=== PATIENT | male | born 1940 | race Caucasian/White ===

== ENCOUNTER → 2016-11-23 08:03 | Outpatient (CLI) | payer MEDICARE, OTHER ==
[2016-05-14 13:01] VITALS: BMI 31.6
[~2016-11-23 08:03] MED LIST: ATROVENT 0.02%2.5 ML UPD; BETAPACE 120 M120 MG PO; BROMFED-DM COU473 ML PO; CORDARONE200 MG PO; DULCOLAX5 MG PO; FEXOFENADINE H180 MG PO; FLUTICASONE PRO16 GM NASAL; FUROSEMIDE20 MG PO; IPRAT-ALBUT 0.5-3 ML; LASIX20 MG PO; LEVAQUIN500 MG PO; LEVAQUIN750 MG PO; MIRALAX17 GM PO; MUCINEX600 MG PO; MULTAQ400 MG PO; NEXIUM40 MG PO; OMNICEF300 MG PO; PERFOROMIS20 MCG/21 INH; PERFOROMIS20 MCG/21 UPD; POTASSIUM CHLO20 MEQ PO; PREDNISONE20 MG PO; PROTONIX40 MG PO; PULMICORT0.25 MG/1 INH; PULMICORT0.5 MG/21 INH; PULMICORT0.5 MG/21 UPD; RYNEX DM LIQUI473 ML PO; SALINE NASAL SP45 ML NASAL; SENOKOT-S TABLE1 TAB PO; SINGULAIR10 MG PO; STERAPRED DS 1210 MG PO; SYMBICORT 16010.2 GM IH; SYNTHROID125 MCG PO; SYNTHROID25 MCG PO; TESSALON PERLE100 MG PO; VASOTEC2.5 MG PO; XARELTO15 MG PO; XOPENEX 0.0.63 MG/3 UPD; XOPENEX HFA15 GM INH
== END | disposition home or self-care (01) ==
LOC: D.RT 08:00
DX: J84.10 Pulmonary fibrosis, unspecified (principal)

== ENCOUNTER 2017-03-27 17:50 | Inpatient (IN) | payer MEDICARE, OTHER ==
[2017-03-27 19:14] LABS: BASOPHILS 0.5 % (0-2); EOSINOPHILS 2.7 % (0-7); HEMATOCRIT 39.4 % (42.0-54.0); HEMOGLOBIN 13.2 g/dL (13.5-17.5); IMMATURE GRANULOCYTES 0.2 % (0-5); LYMPHOCYTES 44.6 % (15-50); MCH 30.8 pg (26.0-34.0); MCHC 33.5 g/dL (31.0-37.0); MCV 91.8 fL (80.0-100.0); MEAN PLATELET VOLUME 10.4 fL (7.4-10.4); PLATELET COUNT 224 10x3/uL (130-400); RBC 4.29 10x6/uL (4.20-6.10); RDW 14.8 % (11.5-14.5); WBC 8.1 10x3/uL (4.8-10.8)
[2017-03-27 19:47] LABS: ALBUMIN 3.1 g/dL (3.4-5.0); ALKALINE PHOSPHATASE 63 U/L (46-116); ALT (SGPT) 21 U/L (10-68); CALC OSMOLALITY 288 mosm/kg (275-300); CALCIUM 7.9 mg/dL (8.5-10.1); CARBON DIOXIDE 22.9 mmol/L (21.0-32.0); CHLORIDE - SERUM 108 mmol/L (98-107); CREATININE - SERUM 1.1 mg/dL (0.6-1.3); GLUCOSE 112 mg/dL (74-106); POTASSIUM - SERUM 3.5 mmol/L (3.5-5.1); PROTEIN - SERUM 6.1 g/dL (6.4-8.2); SODIUM 142 mmol/L (136-145); UREA NITROGEN 26 mg/dL (7-18); eGFR NON AFRICAN AMERICAN 69 mL/min (90-120)
[2017-03-27 19:54] LABS: PRO BNP 882 pg/mL (0-450); TROPONIN-I < 0.017 ng/mL (0.000-0.060)
--- NOTE | 2017-03-27 21:20 | NUR ---
PT ARRIVES TO FLOOR VIA STRETCHER FROM ER ACCOMPANIED BY PT'S SPOUSE AND NURSE. PLACED ON TELEMETRY, REMAINS IN UNCONTROLLED A-FIB ON TELE, HR 130'S. CARDIZEM INFUSING AT 10 MG/HR PER RIGHT CHEST INFUSAPORT. ADMISSION ASSESSMENT AND HISTORY COMPLETED AND MEDICATIONS RECONCILED AT THE BEDSIDE WITH PT AND HIS SPOUSE. UNIT ROUTINES AND PROTOCOLS DISCCUSED, UNDERSTANDING VERBALIZED. CALL LIGHT WITHIN REACH. WILL CONT TO MONITOR.
[2017-03-27] MEDS ORDERED: BROVANA15 MCG/2 M INH (21:26)
[2017-03-27 23:34] VITALS: BP 128/81; BMI 30.9
[2017-03-28] VITALS: BP 128/81
[2017-03-28 05:53] LABS: BASOPHILS 0.3 % (0-2); EOSINOPHILS 4.5 % (0-7); HEMATOCRIT 42.7 % (42.0-54.0); HEMOGLOBIN 14.2 g/dL (13.5-17.5); IMMATURE GRANULOCYTES 0.3 % (0-5); LYMPHOCYTES 28.6 % (15-50); MCH 30.7 pg (26.0-34.0); MCHC 33.3 g/dL (31.0-37.0); MCV 92.2 fL (80.0-100.0); MEAN PLATELET VOLUME 10.4 fL (7.4-10.4); MONOCYTES 10.1 % (2-11); NEUTROPHILS 56.2 % (40-80); PLATELET COUNT 220 10x3/uL (130-400); RBC 4.63 10x6/uL (4.20-6.10)
[2017-03-28 05:57] LABS: WBC 10.4 10x3/uL (4.8-10.8)
[2017-03-28 06:24] LABS: ANION GAP 11.5 mmol/L (8-16); CALCIUM 8.7 mg/dL (8.5-10.1); CARBON DIOXIDE 27.2 mmol/L (21.0-32.0); CREATININE - SERUM 1.3 mg/dL (0.6-1.3); POTASSIUM - SERUM 3.7 mmol/L (3.5-5.1)
--- NOTE | 2017-03-28 06:35 | NUR ---
DR HARVEY HERE TO SEE PT, ORDERS TO INCREASE PT'S CARDIZEM GTT TO 15 MG/HR. DONE AT THIS TIME ORDERED.
--- NOTE | 2017-03-28 07:19 | NUR ---
AM ROUNDS- PT IN BED, ASKING WHEN BREAKFAST IS SERVED. INFOMRED PT THAT BREAKFAST IS SERVED AROUND 8. PT DENIES ANY NEEDS AT THIS TIME. RESP EVEN AND NONLABORED. LT RT CHEST PORT INFUSING CARDIZEM AT 15. TELEMETRY SHOWING UAF 127. CALL LIGHT IN REACH, NAD NOTED, WILL CONTINUE TO MONITOR.
[2017-03-28 08:00] VITALS: BP 96/59
--- NOTE | 2017-03-28 08:58 | NUR ---
AM MEDS GIVEN AT THIS TIME. PT UP TO SIDE OF BED, DENIES ANY NEEDS. CALL LIGHT IN [facility], NAD NOTED, WILL CONTINUE TO MONITOR.
[2017-03-28 12:00] VITALS: BP 94/60
--- NOTE | 2017-03-28 12:06 | NUR ---
NEW BAG OF CARDIZEM HUNG AT THIS TIME. PT UP TO SIDE OF BED, EATING LUNCH, DENIES ANY NEEDS AT THIS TIME. CALL LIGHT IN REACH, NAD NOTED, WILL CONTINUE TO MONITOR.
[2017-03-28 16:00] VITALS: BP 100/73
--- NOTE | 2017-03-28 16:52 | NUR ---
4MG OF ZOFRAN GIVEN FOR NUASEA AND GAVE XARELTO ORDERED. PT UP TO SIDE OF BED, FIXING TO EAT DINNER, AT BEDSIDE, NAD NOTED, WILL CONTINUE TO MONITOR.
--- NOTE | 2017-03-28 19:00 | NUR ---
RECEIVED REPORT AND ASSUMED PT CARE AT THIS TIME FROM DAY SHIFT RN.
[2017-03-28 20:00] VITALS: BP 113/92
--- NOTE | 2017-03-28 20:30 | NUR ---
INITIAL ASSESSMENT COMPLETED, VSS, AFEBRILE. REMAINS IN A-FIB ON MONITOR, UNCONTROLLED RATE 110'S. CONTINUES ON CARDIZEM 15 MG/HR INFUSING TO RT CHEST IP. SITE APPEARS WNL, DRESSING CDI. O2 5LPM NC. DENIES ANY C/O DYSPNEA. WILL CONT TO MONITOR.
--- NOTE | 2017-03-28 22:00 | NUR ---
PT LAYING IN BED, WATCHING TV. NO C/O OR DISTRESS NOTED. CALL LIGHT WITHIN REACH. WILL CONT TO MONITOR.
[2017-03-29] VITALS: BP 103/56
--- NOTE | 2017-03-29 | NUR ---
NO CHANGES NOTED IN ASSESSMENT. REMAINS IN A-FIB ON TELE, HR 112. CARDIZEM CONT TO INFUSE @ 15 MG/HR. NO NEEDS VOICED. CALL LIGHT WITHIN REACH. WILL MONITOR.
[2017-03-29 05:42] LABS: BASOPHILS 0.3 % (0-2); EOSINOPHILS 5.7 % (0-7); HEMOGLOBIN 13.1 g/dL (13.5-17.5); IMMATURE GRANULOCYTES 0.1 % (0-5); LYMPHOCYTES 32.4 % (15-50); MCHC 32.8 g/dL (31.0-37.0); MCV 91.7 fL (80.0-100.0); MEAN PLATELET VOLUME 10.4 fL (7.4-10.4); MONOCYTES 10.9 % (2-11); NEUTROPHILS 50.6 % (40-80); PLATELET COUNT 204 10x3/uL (130-400); RBC 4.36 10x6/uL (4.20-6.10)
[2017-03-29 05:49] LABS: WBC 7.6 10x3/uL (4.8-10.8)
[2017-03-29 06:00] LABS: ANION GAP 10.8 mmol/L (8-16); CALCIUM 8.4 mg/dL (8.5-10.1); CARBON DIOXIDE 26.1 mmol/L (21.0-32.0); CREATININE - SERUM 1.2 mg/dL (0.6-1.3); POTASSIUM - SERUM 3.9 mmol/L (3.5-5.1)
--- NOTE | 2017-03-29 07:30 | NUR ---
RECEIVED PT IN BED EYES CLOSED RESP UNLABORED NAD NOTED
[2017-03-29 08:00] VITALS: BP 109/80
[2017-03-29 16:00] VITALS: BP 104/72
[2017-03-29 19:00] VITALS: BP 113/56
--- NOTE | 2017-03-29 19:32 | NUR ---
RESUMED CARE OF PT, LYING IN BED RESPIRATIONS EVEN AND UNLABORED ON 5LPM VIA NC. UPDRAFT IN PROGRESS. RIGHT INFUSAPORT INUFSING MARGARITOM @ 15. 76 SR ON TELEMETRY. CALL LIGHT IN REACH. SEE NURSE ASSESSMENT. WILL CONTINUE TO MONITOR. SEE NURSE ASSESSMENT.
--- NOTE | 2017-03-29 21:38 | NUR ---
GONE FOR XRAY
[2017-03-30] VITALS: BP 109/61
--- NOTE | 2017-03-30 02:29 | NUR ---
LYING IN BED, CALL LIGHT IN REACH. WILL CONTINUE WITH PLAN OF CARE
[2017-03-30 04:00] VITALS: BP 109/71
[2017-03-30 06:22] LABS: BASOPHILS 0.3 % (0-2); EOSINOPHILS 6.9 % (0-7); HEMATOCRIT 38.3 % (42.0-54.0); HEMOGLOBIN 12.7 g/dL (13.5-17.5); IMMATURE GRANULOCYTES 0.3 % (0-5); LYMPHOCYTES 30.1 % (15-50); MCH 30.4 pg (26.0-34.0); MCHC 33.2 g/dL (31.0-37.0); MCV 91.6 fL (80.0-100.0); MEAN PLATELET VOLUME 10.4 fL (7.4-10.4); MONOCYTES 14.1 % (2-11); NEUTROPHILS 48.3 % (40-80); PLATELET COUNT 202 10x3/uL (130-400); RBC 4.18 10x6/uL (4.20-6.10); WBC 7.9 10x3/uL (4.8-10.8)
[2017-03-30 06:36] LABS: ANION GAP 10.9 mmol/L (8-16); CALCIUM 8.2 mg/dL (8.5-10.1); CARBON DIOXIDE 25.8 mmol/L (21.0-32.0); CREATININE - SERUM 1.2 mg/dL (0.6-1.3); POTASSIUM - SERUM 3.7 mmol/L (3.5-5.1)
--- NOTE | 2017-03-30 07:15 | NUR ---
RECEIVED PT IN BED AAOX4 RESP UNLABORED DENIES ANY NEEDS OR DISCOMFORT AT THIS TIME
[2017-03-30 08:25] VITALS: BP 113/63
[2017-03-30 12:12] VITALS: BP 107/73
[2017-03-30 16:24] VITALS: BP 111/73
--- NOTE | 2017-03-30 16:50 | CN ---
PATIENT NAME:PRAVIN ALLISON MEDICAL RECORD: [id number] : 38 LOCATION:DDonna D.2116 ADMIT DATE: 03/28/17 ACCOUNT: [id number] CONSULTING PHYSICIAN: KIP TURNER MD REFERRING PHYSICIAN: NEWTON CRUZ MD DATE OF CONSULTATION: 03/29/2017 PULMONARY CONSULTATION CONSULT REQUESTING PHYSICIAN: Dr. Jozef Holden. REASON FOR CONSULTATION: Shortness of breath and atrial fibrillation. HISTORY OF PRESENT ILLNESS: Mr. Allison is a 76-year-old gentleman who has a history of COPD, pulmonary fibrosis, chronic hypoxic respiratory failure and cardiomyopathy. Yesterday, the patient was at home and he developed shortness of breath at rest. Also, he has been having palpitation. The patient was brought into the ER and his heart rate was 150-160. The heart rate well controlled, now the shortness of breath has improved. His cough without much sputum production. There are no fever and chills, no night sweats. He does not hear himself wheezing. REVIEW OF SYSTEMS: Mainly in the history of present illness. PAST MEDICAL HISTORY: 1. COPD of severe degree. 2. Emphysema. 3. Pulmonary fibrosis. 4. Chronic hypoxic respiratory failure. 5. History of atrial fibrillation. 6. History of coronary artery disease, cardiomyopathy with EF in 20s. PAST SURGICAL HISTORY: 1. Colon surgery. 2. Hip replacement. 3. Knee surgery. 4. Back surgery. ALLERGIES: There are no known drug allergies. PRESENT MEDICATIONS: On [place] was reviewed. PERSONAL AND SOCIAL HISTORY: The patient is . He lived with his . He is an ex-smoker. He is a nondrinker. FAMILY HISTORY: Noncontributory. PHYSICAL EXAMINATION: GENERAL: Now, the patient is lying comfortably, but he is not in acute respiratory distress. VITAL SIGNS: The blood pressure is 109/80, pulse is 61 to 123, temperature 98.8, and SpO2 is 91% on 6 liters nasal cannula. HEENT: Conjunctivae pink, sclerae nonicteric. NECK: Supple, no JVD. CHEST: The chest excursion is minimal on both sides. There is a crackle at the CONSULT REPORT [id number] PRAVIN ALLISON bases. No wheezing. HEART: Rhythm regular, normal sound, no murmur. ABDOMEN: Soft, bowel sounds present. No hepatosplenomegaly. RECTAL: Deferred. EXTREMITIES: No cyanosis, no clubbing, no pedal edema. SKIN: Warm, normal turgor. CENTRAL NERVOUS SYSTEM: The patient is awake and alert. There is no obvious cranial nerve abnormality. The gait was not tested. CHEST RADIOGRAPH: There is a chronic interstitial marking, no acute infiltrate. OTHER LABORATORY DATA: CBC: WBC is 7.6, hemoglobin 13.1, hematocrit 40, platelet count 204. Chemistry: Sodium 138, potassium 3.9, BUN is 37, creatinine 1.2. IMPRESSION: 1. Acute dyspnea, most likely secondary to acute atrial fibrillation. 2. 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 3. Chronic obstructive pulmonary disease without exacerbation. 4. Chronic hypoxic respiratory failure. 5. Congestive heart failure with cardiomyopathy with ejection fraction of 20%. RECOMMENDATIONS: 1. Continue supplemental oxygen. 2. Heart rate control by Dr. De Los Santos. 3. Albuterol ipratropium nebulizer. 4. Brovana, budesonide nebulizer. Dr. Holden, thank you for involving me in the care of Mr. Allison. TRANSINT:[id number] Voice Confirmation ID: [id number] DOCUMENT ID: [id number] KIP TURNER MD at 1650 CC: JUAN ALBERTO BLACKWOOD MD [id number] DICTATION DATE: 03/29/17 1633 TRANSIT BUS DRIVER: 03/30/17 0121 ADM IN [id number] [place] [address]
[2017-03-30 20:00] VITALS: BP 125/74
--- NOTE | 2017-03-30 22:02 | NUR ---
HS MEDS GIVEN TO PATIENT. CURRENTLY ON CARDIZEM DRIP AT 15ML/HR. PER TELEMETRY RATE IS 40'S TO 90'S SR AND JUNCTIONAL. WILL CONTINUE TO MONITOR AND CALL MD IF HR STAYS CONSISTENTLY LOW. PT IS ALERT/ORIENTED. INDEPENDENT TO BATHROOM.
[2017-03-31] VITALS: BP 104/67
[2017-03-31 04:00] VITALS: BP 105/63
[2017-03-31 06:04] LABS: BASOPHILS 0 % (0-2); EOSINOPHILS 0.2 % (0-7); HEMATOCRIT 39.3 % (42.0-54.0); HEMOGLOBIN 13.2 g/dL (13.5-17.5); IMMATURE GRANULOCYTES 0.3 % (0-5); LYMPHOCYTES 22.6 % (15-50); MCH 30.6 pg (26.0-34.0); MCHC 33.6 g/dL (31.0-37.0); MCV 91.2 fL (80.0-100.0); MEAN PLATELET VOLUME 10.5 fL (7.4-10.4); MONOCYTES 1.4 % (2-11); NEUTROPHILS 75.5 % (40-80); PLATELET COUNT 213 10x3/uL (130-400); RBC 4.31 10x6/uL (4.20-6.10); RDW 14.7 % (11.5-14.5); WBC 6.2 10x3/uL (4.8-10.8)
[2017-03-31 06:20] LABS: CALCIUM 8.1 mg/dL (8.5-10.1); CARBON DIOXIDE 23.8 mmol/L (21.0-32.0); CREATININE - SERUM 1.4 mg/dL (0.6-1.3); POTASSIUM - SERUM 3.8 mmol/L (3.5-5.1)
[2017-03-31 09:19] VITALS: BP 129/52
--- NOTE | 2017-03-31 10:49 | NUR ---
TELEMETRY SR. UD GIVEN BY RT. AT BS. WILL CONT. PLAN OF CARE.
[2017-03-31 12:09] VITALS: BP 116/63
[2017-03-31 14:54] VITALS: BP 107/80
[2017-03-31 19:00] VITALS: BP 114/63
--- NOTE | 2017-03-31 19:23 | NUR ---
RESUMED CARE OF PT, LYING IN BED RESPIRATIONS EVEN AND UNLABORED ON 5LPM VIA NC. 87 SR ON TELEMETRY. NO NEEDS AT THIS TIME, CALL LIGHT IN REACH. RIGHT INFUSAPORT SALINE LOCKED. WILL CONTINUE TO MONITOR. SEE NURSE ASSESSMENT.
[2017-04-01] VITALS: BP 101/62
--- NOTE | 2017-04-01 02:42 | NUR ---
CALL LIGHT IN REACH, WILL CONTINUE WITH PLAN OF CARE.
[2017-04-01 04:00] VITALS: BP 126/82
[2017-04-01 06:08] LABS: BASOPHILS 0.1 % (0-2); EOSINOPHILS 0 % (0-7); HEMOGLOBIN 12.7 g/dL (13.5-17.5); IMMATURE GRANULOCYTES 0.3 % (0-5); LYMPHOCYTES 12.3 % (15-50); MCH 30.8 pg (26.0-34.0); MCHC 34.3 g/dL (31.0-37.0); MCV 89.8 fL (80.0-100.0); MEAN PLATELET VOLUME 10.4 fL (7.4-10.4); NEUTROPHILS 79.3 % (40-80); PLATELET COUNT 224 10x3/uL (130-400); RBC 4.12 10x6/uL (4.20-6.10)
[2017-04-01 06:16] LABS: ANION GAP 14.2 mmol/L (8-16); CALCIUM 8.4 mg/dL (8.5-10.1); CARBON DIOXIDE 25.9 mmol/L (21.0-32.0); CREATININE - SERUM 1.1 mg/dL (0.6-1.3); POTASSIUM - SERUM 4.1 mmol/L (3.5-5.1)
[2017-04-01 06:18] LABS: WBC 11.6 10x3/uL (4.8-10.8)
[2017-04-01 08:29] VITALS: BP 134/78
--- NOTE | 2017-04-01 09:30 | NUR ---
TELEMETRY SR. RESP UL ON 02 5L NC. CALL LIGHT IN REACH. WILL CONT. PLAN OF CARE.
[2017-04-01 12:41] VITALS: BP 117/59
[2017-04-01] MEDS ORDERED: CARDIZEM SR60 MG PO (13:32)
[2017-04-01] MEDS ORDERED: XARELTO15 MG PO (13:32)
[2017-04-01] MEDS ORDERED: FLORAJEN3 CAPS460 MG PO (13:34)
[2017-04-01] MEDS ORDERED: PREDNISONE10 MG PO (13:34)
[2017-04-01] MEDS ORDERED: VIBRAMYCIN 100100 MG PO (13:34)
--- NOTE | 2017-04-01 14:45 | NUR ---
WRITTEN SCRIPTS TO PATIENT FOR: XARELTO 15 MG # 30 WITH NO REFILLS - TAKE 1 AT DINNER CARDIZEM SR 60 MG # 60 WITH NO REFILLS - TAKE 1 PILL TWICE A DAY FLORAJEN3 CAPS 460 MG # 5 WITH NO REFILLS - TAKE 1 PILL DAILY VIBRAMYCIN 100 MG # 1O WITH NO REFILLS - TAKE 1 PILL TWICE A DAY TAPER DOSE OF PREDNISONE 10 MG TABS # 30 WITH NO REFILLS.
[2017-04-01] MEDS ORDERED: FUROSEMIDE20 MG PO ×2 (16:04→16:06)
--- NOTE | 2017-04-01 16:29 | NUR ---
IV AND TELEMETRY DCD. DC PLANS GIVEN. UNDERSTANDING VOICED. ESCORTED TO CAR BY W/C.
--- NOTE | 2017-04-01 17:24 | NUR ---
Patient Name: PRAVIN VALERIO Admission Status: ER Accout number: [id number] Admission Date: 03-28-2017 : 1940 Admission Diagnosis:SHORTNESS OF BREATH Attending: NEWTON GASCA Current LOS: 4 Anticipated DC Date: 04-01-2017 Planned Disposition: Home Primary Insurance: MEDICARE A & B Discharge Planning Comments: * Is the patient Alert and Oriented? Yes 0 * How many steps to enter\exit or inside your home? NONE 0 * PCP DR. BLACKWOOD 0 * Pharmacy [facility] 0 * Preadmission Environment Home with Family 0 * ADLs Independent 0 * Equipment Cane Nebulizer Oxygen Rolling Walker Shower Chair 0 * Other Equipment [facility] PROVIDER HOME AND PORTABLE OXYGEN 0 * List name and contact numbers for known caregivers / representatives who currently or will assist patient after discharge: MARTA VALERIO, SPOUSE, 0 * Community resources currently utilized None 0 * Please name any agencies selected above. NONE 0 * Additional services required to return to the preadmission environment? No 0 * Can the patient safely return to the preadmission environment? Yes 0 * Has this patient been hospitalized within the prior 30 days at any hospital? No 0 CM MET WITH PT AND SPOUSE IN ROOM TO DISCUSS DISCHARGE PLANNING AND NEEDS. PT REPORTS LIVING AT HOME INDEPENDENTLY WITH SPOUSE. PT HAS ALL NEEDED MEDICAL EQUIPMENT FROM [facility] AND NO OUTSIDE SERVICES ASSISTING IN THE HOME. CM DISCUSSED AVAILABILITY OF HOME HEALTH, REHAB SERVICES AND MEDICAL EQUIPMENT. PT DENIES DISCHARGE NEEDS, REPORTS HIS IS HERE TO TRANSPORT FOR DISCHARGE HOME. IMPORTANT MESSAGE FROM MEDICARE PROVIDED AND EXPLAINED. Manager Long Term Care: Kentrell Lima
== END 2017-04-01 16:30 | disposition home or self-care (01) | DRG 308 ==
LOC: D.ER 17:50 → D.M2 20:45 → D.SDCHOLD 03-30 15:34 → D.M2 03-30 15:36
PROVIDERS: Emergency Medicine; ADMIT Family Medicine Adult Medicine
DX: I48.0 Paroxysmal atrial fibrillation (principal); I50.31 Acute diastolic (congestive) heart failure; J96.11 Chronic respiratory failure with hypoxia; I42.9 Cardiomyopathy, unspecified; J44.9 Chronic obstructive pulmonary disease, unspecified; I25.10 Atherosclerotic heart disease of native coronary artery without angina pectoris; J84.10 Pulmonary fibrosis, unspecified; I45.10 Unspecified right bundle-branch block; Z79.01 Long term (current) use of anticoagulants; Z87.891 Personal history of nicotine dependence

== ENCOUNTER → 2017-05-12 07:37 | Outpatient (CLI) | payer MEDICARE, OTHER ==
[~2017-05-12 07:37] MED LIST changes: +BROVANA15 MCG/2 M INH; +CARDIZEM SR60 MG PO; +FLORAJEN3 CAPS460 MG PO; +PREDNISONE10 MG PO; +VIBRAMYCIN 100100 MG PO
== END | disposition home or self-care (01) ==
LOC: D.RT 07:37 → D.CT 09:30 → D.RT 05-24 09:00 → D.CT 05-24 10:00
DX: J84.10 Pulmonary fibrosis, unspecified (principal)

== ENCOUNTER → 2017-12-10 08:39 | Outpatient (CLI) | payer MEDICARE, OTHER ==
[~2017-12-10 08:39] MED LIST changes: +BETAPACE 80 MG80 MG PO; +K-DUR20 MEQ PO; +LASIX40 MG PO; +LEVOTHYROXINE125 MCG PO
== END | disposition home or self-care (01) ==
LOC: D.RT 08:39
DX: J47.9 Bronchiectasis, uncomplicated (principal)

== ENCOUNTER 2018-02-13 20:38 | Inpatient (IN) | payer MEDICARE, OTHER ==
[~2018-02-13] VITALS: Ht 172.7 cm; Wt 91.5 kg
--- NOTE | ~2018-02-13 | PN ---
PATIENT:PRAVIN VALERIO MEDICAL RECORD: [id number] LOCATION:D. D.212 ADMISSION DATE: 02/14/18 PROGRESS NOTE DATE OF SERVICE: 02/15/2018 SUBJECTIVE: This is a 77-year-old man who has had a history of pulmonary fibrosis and COPD with emphysema. The patient has had some nasal drainage, has had some coughing and increasing shortness of breath. The patient was admitted and was started on steroids as well as antibiotics and bronchodilators. The patient has been feeling better but still claims that there is mucus down in the lungs. The patient had a repeat CT scan of the lung showed some mild improvement compared to previous CT scan. No chest pain. There is no orthopnea or PND. PHYSICAL EXAMINATION: GENERAL: Physical exam reveals an elderly man who is in no acute distress. VITAL SIGNS: Temperature 97.5, heart rate of 65, respiratory rate of 22, and blood pressure 106/55. SHEENT: Unremarkable. NECK: Supple. LUNGS: Exam shows some mild crackles and coughing. No chest wall tenderness. HEART: Exam shows no jugular venous distention, murmur or gallop. ABDOMEN: Benign. EXTREMITIES: No clubbing, cyanosis or edema. LABORATORY DATA: White count of 16, hemoglobin 13.7, and platelet count is 204,000. Chemistry is essentially normal with albumin of 1.2. Chest CT showed pulmonary fibrosis and pulmonary hypertension with a 5 x 5 mm left lower lobe lung nodule, which is improved. There is no ground glass infiltrate. ASSESSMENT: 1. Acute bronchitis with exacerbation of chronic obstructive pulmonary disease. The patient is improving on bronchodilators as well as systemic steroids. 2. Rhinitis. 3. Pulmonary fibrosis. 4. Chronic obstructive pulmonary disease. PLAN: 1. Flonase and saline nasal spray. 2. Change steroids to prednisone orally. 3. Increase physical therapy for home disposition. TRANSINT:[id number] Voice Confirmation ID: [id number] DOCUMENT ID: [id number] PROGRESS NOTE [id number] PRAVIN VALERIO BRADY MONCADA at 1307 CC: [id number] DICTATION DATE: 02/15/18 2147 CHUCK WAGON COOK: 02/16/18 0643 DIS IN 02/16/18 [address] [place] [address]
--- NOTE | ~2018-02-13 | EC ---
PATIENT:PRAVIN VALERIO DATE OF SERVICE: 02/14/18 SEX: M MEDICAL RECORD: [id number] DATE OF : 38 LOCATION:D.M2 D.212 AGE OF PATIENT: 77 ADMISSION DATE: 02/14/18 REFERRING PHYSICIAN: INTERPRETING PHYSICIAN: ELSI AVITIA MD ECHOCARDIOGRAM REPORT ECHO CHARGES 4 ECHO COMPLETE Date: 02/15 CLINICAL DIAGNOSIS: CHF ECHOCARDIOGRAPHIC MEASUREMENTS (adult normal given) AC root (d.<3.7cm) 3.5 cm LV Septum d (<1.2 cm> 1.0 cm Valve Excursion 1.4 cm LV Septum (systole) 1.7 cm Left Atria (s.<4.0cm> 4.2 cm LVPW d(<1.2cm) 0.9 cm RV (d.<2.3cm) 3.1 cm LVPW (sytole) 1.3 cm LV diastole(<5.6CM) 5.1 cm MV E-F(>70mm/sec) 1.5 cm LV systole 4.3 cm LVOT Diameter 2.2 cm MV exc.(>10mm) cm Est.ejection fraction (50-75%) % DOPPLER: LVIT cm/sec A 59 cm/sec E 55 cm/sec LA cm/sec RVSP 27 mmHg LVOT 100 cm/sec AOP1/2T m/s Asc. Ao 137 cm/sec RVOT 81 cm/sec RA cm/sec PA 108 cm/sec AV Gradient Peak 7.47 mmHg AV Mean 4.12 mmHg AV Area 3.0 cm MV Gradient Peak 2.70 mmHg MV Mean 1.27 mmHg MV Area cm COMMENTS: Shellfish Shucker: Ana CRUZ Industrial Engineering Professor: 4 Dr. Avitia TAPE# PACS Pericardial Effusion N DATE OF SERVICE: PROCEDURE: Transthoracic echocardiogram. FINDINGS: 1. It is a very poor echocardiogram in quality. It is difficult to be definitive and in fact this is more qualitative echocardiography rather than quantitative echocardiography. The overall ejection fraction appears to be preserved. There is suggestion of diastolic abnormality. There is also significant dyssynchrony in the septum that likely representing the underlying ECHOCARDIOGRAM REPORT [id number] PRAVIN VALERIO bundle branch block and the asynchronous nature of left ventricular depolarization. 2. The right ventricle is severely dilated and the function of the right ventricle appears to be mildly depressed. 3. The mitral valve appears to be grossly normal. There is no obvious or significant mitral regurgitation. 4. Tricuspid valve appears to be grossly normal. We did not get a great envelope to estimate or quantify the right ventricular systolic pressures, although that was attempted. I would suggest that it is either normal or near normal on the sampling. IVC was not well visualized. Pulmonic valve again was not well visualized. TRANSINT:[id number] Voice Confirmation ID: [id number] DOCUMENT ID: [id number] ELSI AVITIA MD at 1144 CC: [id number] DICTATION DATE: 02/16/18 1655 ELECTRONIC SCALE TESTER: 02/17/18 0002 DIS IN 02/16/18 [facility] [address] [place] [address]
--- NOTE | ~2018-02-13 | PN ---
PATIENT:PRAVIN VALERIO MEDICAL RECORD: [id number] LOCATION:[address] ADMISSION DATE: 02/14/18 PROGRESS NOTE DATE OF SERVICE: 02/16/2018 SUBJECTIVE: This is a 77-year-old man who has had history of COPD as well as pulmonary fibrosis. The patient developed onset of cough, nasal drainage, and shortness of breath. The patient was admitted and treated with bronchodilator and systemic steroids. CT scan shows some mild improvement of the fibrosis. There is a nodule which appears to be improved. The patient's breathing has improved considerably. The patient is being discharged today for outpatient followup. I have discussed with him to come to the office in 3-[address] Renteria to see him. PHYSICAL EXAMINATION: GENERAL: Reveals a well-developed and well-nourished male, who is in no acute distress. VITAL SIGNS: Temperature of 97.5, heart rate of 67, respiratory rate of 18, blood pressure of 106/74. SHEENT: Unremarkable. NECK: Supple. CHEST: Clear. No accessory muscle use. CARDIAC: Shows no jugular venous distention, murmur, or gallop. ABDOMEN: Benign. EXTREMITIES: Show no clubbing, cyanosis, or edema. Lab exam shows white count of 11.8, hemoglobin is 14.5, platelet count is 201,000. Chemistry is unremarkable. ASSESSMENT: 1. Acute bronchitis with COPD exacerbation. 2. Pulmonary fibrosis. 3. COPD. PLAN: The patient may be discharged today and will be seen in the clinic in 3-[address] Renteria. TRANSINT:[id number] Voice Confirmation ID: [id number] DOCUMENT ID: [id number] BRADY MONCADA at 1307 CC: [id number] DICTATION DATE: 02/16/18 1651 BLOCKER AND SEWER: 02/16/182002 DIS IN 02/16/18 [facility] [address] [place] [address]
--- NOTE | ~2018-02-13 | PN ---
PATIENT:PRAVIN VALERIO MEDICAL RECORD: [id number] LOCATION:D. D.212 ADMISSION DATE: 02/14/18 PROGRESS NOTE DATE OF SERVICE: 02/14/2018 SUBJECTIVE: A 77-year-old man who has a history of congestive heart failure, COPD, pulmonary fibrosis, on home oxygen. The patient has had increasing shortness of breath recently and was seen in the Emergency Room and admitted. The patient feels improved, but does not know what was causing his shortness of breath. He had an echocardiogram recently but he does not know about the report or results. He has also had CT scan in the past. The patient denies any fever or chills or chest pains. There is no peripheral swelling there. PHYSICAL EXAMINATION: GENERAL: Reveals an elderly man who is in no acute distress. VITAL SIGNS: Temperature 98.4, heart rate of 59, respiratory rate of 20, blood pressure 104/73, saturation 98%. SHEENT: Unremarkable. NECK: Supple. There is no adenopathy. Trachea is midline. CHEST: She has some mild crackles. There is no accessory muscle use. There is no chest wall tenderness. HEART: Shows no jugular venous distention. No murmur or gallops. ABDOMEN: Benign. There is no tenderness. There is no distention. EXTREMITIES: No clubbing, cyanosis or edema. LABORATORY DATA: Show white count 6, hemoglobin 15.4, platelet count is 190,000. Chemistry is essentially normal. BNP is 1207. Chest x-ray shows moderate pulmonary fibrosis in the mid to lower lungs. Mild cardiomegaly. ASSESSMENT: 1. Interstitial lung disease. 2. Chronic obstructive pulmonary disease. 3. Possible congestive heart failure. We will await the echocardiogram report done at our office. PLAN: 1. CT scan of the lungs. 2. High resolution CT. 3. Continue bronchodilators. 4. Increase activity. TRANSINT:[id number] Voice Confirmation ID: [id number] DOCUMENT ID: [id number] PROGRESS NOTE [id number] PRVAIN VALERIO BRADY MONCADA at 1307 CC: [id number] DICTATION DATE: 02/14/182154 LARGE ANIMAL VETERINARIAN: 02/15/18 0409 DIS IN 02/16/18 [address] [id number] [place] [address]
[~2018-02-13 20:38] MED LIST changes: -BETAPACE 80 MG80 MG PO; -K-DUR20 MEQ PO; -LASIX40 MG PO; -LEVOTHYROXINE125 MCG PO
[2018-02-13 21:22] LABS: BASOPHILS 0.3 % (0-2); EOSINOPHILS 5.2 % (0-7); HEMATOCRIT 43.2 % (42.0-54.0); HEMOGLOBIN 14.6 g/dL (13.5-17.5); IMMATURE GRANULOCYTES 0.2 % (0-5); LYMPHOCYTES 33.3 % (15-50); MCH 31.7 pg (26.0-34.0); MCHC 33.8 g/dL (31.0-37.0); MCV 93.7 fL (80.0-100.0); MEAN PLATELET VOLUME 10.8 fL (7.4-10.4); MONOCYTES 9.8 % (2-11); NEUTROPHILS 51.2 % (40-80); PLATELET COUNT 189 10x3/uL (130-400); RBC 4.61 10x6/uL (4.20-6.10); RDW 14.8 % (11.5-14.5); WBC 9.3 10x3/uL (4.8-10.8)
[2018-02-13 21:44] LABS: ALBUMIN 3.7 g/dL (3.4-5.0); ALKALINE PHOSPHATASE 72 U/L (46-116); ALT (SGPT) 32 U/L (10-68); CALC OSMOLALITY 285 mosm/kg (275-300); CALCIUM 9.3 mg/dL (8.5-10.1); CARBON DIOXIDE 30.4 mmol/L (21.0-32.0); CHLORIDE - SERUM 106 mmol/L (98-107); CREATININE - SERUM 0.8 mg/dL (0.6-1.3); GLUCOSE 108 mg/dL (74-106); POTASSIUM - SERUM 4.2 mmol/L (3.5-5.1); PROTEIN - SERUM 7.5 g/dL (6.4-8.2); SODIUM 141 mmol/L (136-145); UREA NITROGEN 24 mg/dL (7-18); eGFR NON AFRICAN AMERICAN > 90 mL/min (90-120)
[2018-02-13 21:55] LABS: CREATINE KINASE 59 UL (21-232); PRO BNP 1035 pg/mL (0-450); TROPONIN-I < 0.017 ng/mL (0.000-0.060)
[2018-02-13 23:35] VITALS: BP 132/86
[2018-02-14 00:27] VITALS: BP 134/81
[2018-02-14] MEDS ORDERED: LEVOTHYROXINE125 MCG PO (01:15)
[2018-02-14] MEDS ORDERED: LASIX40 MG PO (01:17)
[2018-02-14] MEDS ORDERED: BETAPACE 80 MG80 MG PO (01:18)
[2018-02-14 01:26] VITALS: BP 120/82; Ht 172.7 cm; Wt 91.5 kg
[2018-02-14 05:26] VITALS: BP 129/79
[2018-02-14 06:24] LABS: BASOPHILS 0.2 % (0-2); EOSINOPHILS 0.2 % (0-7); HEMATOCRIT 45.4 % (42.0-54.0); HEMOGLOBIN 15.4 g/dL (13.5-17.5); IMMATURE GRANULOCYTES 0.2 % (0-5); LYMPHOCYTES 22.3 % (15-50); MCH 31.4 pg (26.0-34.0); MCHC 33.9 g/dL (31.0-37.0); MCV 92.7 fL (80.0-100.0); MEAN PLATELET VOLUME 10.8 fL (7.4-10.4); MONOCYTES 0.7 % (2-11); NEUTROPHILS 76.4 % (40-80); PLATELET COUNT 190 10x3/uL (130-400); RDW 14.9 % (11.5-14.5)
[2018-02-14 06:56] LABS: CALC OSMOLALITY 287 mosm/kg (275-300); CALCIUM 9.5 mg/dL (8.5-10.1); CARBON DIOXIDE 26.4 mmol/L (21.0-32.0); CHLORIDE - SERUM 101 mmol/L (98-107); CKMB 1.2 U/L (0.0-3.6); CREATINE KINASE 57 UL (21-232); CREATININE - SERUM 1.1 mg/dL (0.6-1.3); GLUCOSE 205 mg/dL (74-106); PRO BNP 1207 pg/mL (0-450); SODIUM 139 mmol/L (136-145); TROPONIN-I < 0.017 ng/mL (0.000-0.060); UREA NITROGEN 23 mg/dL (7-18); eGFR NON AFRICAN AMERICAN 68 mL/min (90-120)
[2018-02-14 10:00] VITALS: BP 124/74
[2018-02-14 13:48] VITALS: BP 104/73
[2018-02-14 18:53] LABS: CKMB 1.4 U/L (0.0-3.6); CREATINE KINASE 86 UL (21-232)
[2018-02-14 18:54] LABS: TROPONIN-I < 0.017 ng/mL (0.000-0.060)
[2018-02-14 20:05] VITALS: BP 106/65
[2018-02-14 23:31] LABS: CKMB 1.2 U/L (0.0-3.6); CREATINE KINASE 93 UL (21-232); TROPONIN-I < 0.017 ng/mL (0.000-0.060)
[2018-02-15 04:54] LABS: BASOPHILS 0.1 % (0-2); EOSINOPHILS 0 % (0-7); HEMATOCRIT 40.9 % (42.0-54.0); HEMOGLOBIN 13.7 g/dL (13.5-17.5); IMMATURE GRANULOCYTES 0.3 % (0-5); LYMPHOCYTES 20.2 % (15-50); MCH 31.3 pg (26.0-34.0); MCHC 33.5 g/dL (31.0-37.0); MCV 93.4 fL (80.0-100.0); MEAN PLATELET VOLUME 10.9 fL (7.4-10.4); MONOCYTES 12.9 % (2-11); NEUTROPHILS 66.5 % (40-80); PLATELET COUNT 204 10x3/uL (130-400); RBC 4.38 10x6/uL (4.20-6.10)
[2018-02-15 05:17] VITALS: BP 114/55
[2018-02-15 05:59] LABS: CALCIUM 8.3 mg/dL (8.5-10.1); CARBON DIOXIDE 30.5 mmol/L (21.0-32.0); CHLORIDE - SERUM 104 mmol/L (98-107); CKMB 1.4 U/L (0.0-3.6); CREATINE KINASE 105 UL (21-232); CREATININE - SERUM 1.2 mg/dL (0.6-1.3); POTASSIUM - SERUM 4.2 mmol/L (3.5-5.1); SODIUM 142 mmol/L (136-145); eGFR NON AFRICAN AMERICAN 62 mL/min (90-120)
[2018-02-15 06:00] LABS: CALC OSMOLALITY 291 mosm/kg (275-300); GLUCOSE 110 mg/dL (74-106); TROPONIN-I < 0.017 ng/mL (0.000-0.060); UREA NITROGEN 35 mg/dL (7-18)
[2018-02-15 18:50] VITALS: BP 120/86
[2018-02-15 20:31] VITALS: BP 106/65
[2018-02-16] VITALS: BP 104/66
[2018-02-16 04:00] VITALS: BP 115/70
[2018-02-16 07:48] LABS: BASOPHILS 0.1 % (0-2); EOSINOPHILS 1.3 % (0-7); HEMATOCRIT 43.5 % (42.0-54.0); HEMOGLOBIN 14.6 g/dL (13.5-17.5); IMMATURE GRANULOCYTES 0.3 % (0-5); LYMPHOCYTES 41.2 % (15-50); MCH 31.4 pg (26.0-34.0); MCHC 33.6 g/dL (31.0-37.0); MCV 93.5 fL (80.0-100.0); MEAN PLATELET VOLUME 10.5 fL (7.4-10.4); NEUTROPHILS 46.1 % (40-80); PLATELET COUNT 201 10x3/uL (130-400); RBC 4.65 10x6/uL (4.20-6.10); RDW 15.3 % (11.5-14.5)
[2018-02-16 07:52] LABS: WBC 11.8 10x3/uL (4.8-10.8)
[2018-02-16 07:54] LABS: ALBUMIN 3.6 g/dL (3.4-5.0); ANION GAP 11.6 mmol/L (8-16); BILIRUBIN - TOTAL 0.52 mg/dL (0.2-1.3); CALCIUM 8.5 mg/dL (8.5-10.1); CARBON DIOXIDE 31.2 mmol/L (21.0-32.0); CREATININE - SERUM 1.2 mg/dL (0.6-1.3); POTASSIUM - SERUM 3.8 mmol/L (3.5-5.1); PROTEIN - SERUM 7.3 g/dL (6.4-8.2)
[2018-02-16 08:52] VITALS: BP 122/74
[2018-02-16] MEDS ORDERED: K-DUR20 MEQ PO (11:23)
[2018-02-16] MEDS ORDERED: LASIX40 MG PO (11:23)
[2018-02-16] MEDS ORDERED: PREDNISONE20 MG PO (11:28)
[2018-02-16 11:41] VITALS: BP 108/64
== END 2018-02-16 17:49 | disposition home or self-care (01) | DRG 196 ==
LOC: D.ER 20:38 → D.M2 02-14 00:16
PROVIDERS: Family Medicine; Internal Medicine
DX: J84.9 Interstitial pulmonary disease, unspecified (principal); I50.31 Acute diastolic (congestive) heart failure; J44.0 Chronic obstructive pulmonary disease with (acute) lower respiratory infection; J44.1 Chronic obstructive pulmonary disease with (acute) exacerbation; I48.91 Unspecified atrial fibrillation; K21.9 Gastro-esophageal reflux disease without esophagitis; J31.0 Chronic rhinitis; J20.9 Acute bronchitis, unspecified; Z87.891 Personal history of nicotine dependence